=== PATIENT | female | born 1975 | race Caucasian/White ===

== ENCOUNTER 2018-04-08 07:50 | Day surgery (SDC) | payer BC, SELFPAY ==
[2018-04-08] VITALS (7 sets, daily range): BP systolic 96–115; BP diastolic 61–75; PULSE 57–82; RESP 14–16; TEMP 36.2–36.4; O2SAT 99–100; BMI 19.6
--- NOTE | 2018-04-08 | FALS_PTH ---
PATIENT: CHAS CARVER LOC: [facility] [place] U#:[id number] AGE/SX: 42/F ROOM: RE04/08/[address]: Dr. Edilma Calvo, MDDOB: 1975 BED: DIS: 04/08/2018 SPEC #: [id number] RECD: 04/08/18 12:25 STATUS: BELKISOleg ONTIVEROS #: [id number] ANNMARIE: 04/08/18 00:[address]: Edilma Calvo DEPT: SURGICAL PATHOLOGY RECD BY: Jose Abreu ENTERED: 04/08/18 12:25 SP TYPE: FALL TUBES OTHR DR: Dr. Rusty Rios DO Tissues: Fallopian tube Procedures: Surgery Specimen Level II HEADER OPERATION: Laparoscopic salpingectomy, Mirena removal PRE-OP DIAGNOSIS: Permanent sterilization and Mirena removal due to expiration TISSUE SUBMITTED: Bilateral fallopian tubes MICROSCOPIC DIAGNOSIS Bilateral fallopian tubes, salpingectomy: Bilateral fallopian tubes including fimbrial ends, no pathologic diagnosis. EVA:jaylene 04/09/18 MICROSCOPIC DESCRIPTION Slides are reviewed. GROSS DESCRIPTION Received is one container labeled with the patient's name and designated bilateral fallopian tubes. The specimen consists of bilateral fallopian tubes including fimbrial ends measuring 4.5 cm in length and 0.5 cm in diameter and 5 cm in length and up to 0.6 cm in diameter. The fallopian tubes are not identified as right or left. Sections reveal unremarkable cut surfaces. Also present in the container are detached tubular pieces of soft tissue measuring 0.6 to 1.5 cm in length and 0.2 to 0.3 cm in diameter. [employer] sections are submitted in two cassettes with each cassette containing one fallopian tube. Cassette 2 contains the detached pieces of tissue, inked black. / EVA:jaylene 04/08/18 TC:4 CPT: 67818 x2
[2018-04-08 08:26] LABS: Internal QC Validated? YES +Cl - CLEAR BKGD; Pregnancy, Urine Negative Negative
[2018-04-08 08:33] LABS: Hematocrit 37.4 % (37-47); Hemoglobin 12.3 g/dl (12.0-15.0); Mean Corp Hgb Conc 32.9 g/gl (32-36); Mean Corpuscular Hgb 31.2 pg (27.0-32.0); Mean Corpuscular Volume 94.9 fL (81-99); Mean Platelet Vol. 9.7 fl (6.2-12.0); Platelet Count 185 K/mm3 (150-450); RBC Distribution Width CV 12.5 % (11.6-14.6); RBC Distribution Width SD 43.3 fl (35.1-43.9); Red Blood Count 3.94 M/mm3 (4.2-5.4); White Blood Count 3.9 K/mm3 (4.4-11.0)
[2018-04-08 08:35] LABS: Scan Indicated on CBC? Y/N NO
--- NOTE | 2018-04-08 09:38 | DCINST_ITS ---
Discharge Diet: No Restrictions, - - Increase fluid intake for 48 hours. Discharge Activity: Return to Normal Activity, May Drive - when you are no longer taking narcotic pain medications., May Shower, May Take a Tub Bath - in 7 days., - - Ambulate often the next week after surgery. May resume sexual activity in: 2 weeks Lifting Restrictions: 20 Additional Activity Instructions:: Nothing in the vagina for the next 5 days. Call your doctor if your incision/area has: Continuous Slow Oozing, Sudden Increased Bleeding, Increased Pain/ Swelling, Increased Redness, Foul Smelling Discharge, Swelling at the incision site Call your doctor if you observe: Fever of 101 or Higher Allergies/Adverse Reactions: Allergies hydrocodone [From Vicodin] Allergy (Verified 04/01/18 09:02) Itching Medications to take at Discharge Levonorgestrel [Mirena] 1 each IY X1 04/01/18 Primary Care Physician: Rusty Rios DO [Primary Care Provider] - Test Results: Test results from this visit will be discussed in further detail at your follow- up appointment, if applicable. Please Follow Up With: Edilma Calvo MD When: as scheduled in 2 weeks
[2018-04-08] MEDS: Bupivacaine Mpf 0.5% 30 ML VIAL (10:20)
--- NOTE | 2018-04-08 10:21 | PCM.OP.BLANK ---
Operative Report Date of Procedure: 04/08/18 Surgeon: Dr. Edilma Calvo Finance Attorney: Meño Beatty MS3 Preoperative diagnosis: Sterilization request, IUD removal Postoperative diagnosis: Sterilization request, IUD removal Procedure performed: Laparoscopic bilateral salpingectomy, Mirena IUD removal complications: None Estimated blood loss: 5 cc Drains: none Specimens collected: Bilateral tubes Findings: Normal tubes and ovaries bilaterally uterus sounded to approximately 8 cm. Anesthesia: General Implantable devices: none Operative note: After informed consent was obtained patient was taken to the operating room she was placed in supine position she was given anesthesia. She was then placed in the yellow [facility] stirrups and she was prepped and draped in normal sterile fashion. Bladder was drained prior to the start of procedure approximately 100 cc of clear yellow urine was expelled. At this time attention was turned to the vaginal portion where weighted speculum placed at posterior fornix vagina single-tooth tenaculum was used to gently grasp the internal the cervix. IUD strings seen at cervical os- grasped with donaldo and iud removed without difficulty. uterus was gently sounded to approximately 8cm. Uterine manipulator was placed without difficulty. Legs then placed in parallel with the abdomen the tenaculum and the weighted speculum were removed. 2 towel clamps were placed superior to umbilicus. After Marcaine was injected superior to umbilicus a small incision was made and a 5 mm trocar was placed under direct visualization. CO2 gas was used to insufflate the intra-abdominal cavity. Upon inspection no gross abnormalities uterus tubes and ovaries appeared to be normal. At this time then the LLQ port and RLQ was placed again Marcaine was injected small incision was made a knife and the 5 mm trocar was placed. At this time then tubes were traced back to the fimbriated ends. Ligasure was used to coagulate and ligate along mesosalpinx bilaterally until tubes removed completely. Good hemostasis was appreciated. At this time procedure was deemed complete successful. The gas was desufflated on from the intra-abdominal cavity. The trochars were removed. Skin was closed using 4-0 Monocryl in a subcutaneous fashion. Dermabond glue was placed. Instrument lap and needle counts were correct ?2. The uterine manipulator was removed. Vaginal sweep was performed it was negative. There were no complications anticipated normal postoperative course for this patient.
== END 2018-04-08 12:10 | disposition home or self-care (01) ==
LOC: SDC 07:54 → AC 07:54
PROVIDERS: Family Provider Student in an Organized Health Care Education/Training Program; PCP Student in an Organized Health Care Education/Training Program; Visit Provider Obstetrics & Gynecology
PROC: (CPT 58661; principal; 2018-04-08 09:10)
DX: Z30.2 Encounter for sterilization (principal); Z30.432 Encounter for removal of intrauterine contraceptive device
CPT/HCPCS: 58301; 58661; 36415; 81025; 85027; 88302; J7120; J2405

== ENCOUNTER 2024-07-04 09:15 | Emergency (ER) | payer OTHER, SELFPAY ==
[2024-07-04 09:16] VITALS: BP 117/76; PULSE 89; RESP 16; TEMP 36.4; O2SAT 100; BMI 20.1
[2024-07-04 09:18] VITALS: BP 117/76; PULSE 89; RESP 16; TEMP 36.4; O2SAT 99
--- NOTE | 2024-07-04 09:27 | ED.VIS.FEGU ---
HPI HPI - Female History of Present Illness Chief Complaint: Complaint PFSH PFSH Home Medications ?Medication ?Instructions ?Recorded ?Last Taken ?Type levonorgestrel (Mirena) 1 ea IY X1 04/01/18 Unknown History Allergy/AdvReac Type Severity Reaction Status Date / Time hydrocodone (From Vicodin) Allergy Itching Verified 07/04/24 09:18 Social History Smoking Status: Never smoker EXAM Physical Exam Const Vital Signs: 07/04/24 09:16 07/04/24 09:18 Temperature 97.5 F L 97.5 F L Temperature Source Temporal Temporal Pulse Rate 89 89 Respiratory Rate 16 16 Blood Pressure 117/76 117/76 Blood Pressure Mean 89 89 Pulse Ox 100 99 Oxygen Delivery Method Room Air Room Air MDM MDM MDM Narrative Medical decision making narrative: HISTORY OF PRESENT ILLNESS: 48-year-old female presents with concern for ongoing UTI symptoms. States is on her second antibiotic for UTI with symptoms not improved. She further states she has had 1 month of burning with urination, frequency. She is sexually active but is active and STDs. Denies vaginal discharge or bleeding. Denies constipation or diarrhea. Notes 1 month ago started Macrobid improved initially. Notes after therapy she was symptom-free for 5 days and then became symptoms again. She notes she is on day 11 of 14 of ciprofloxacin with no relief. She notes some lower abdominal pain. Notes history of fallopian tube removal however she states she does her uterus and ovaries. REVIEW OF SYSTEMS: Pertinent positives: Frequency, dysuria, nausea, abdominal pain Pertinent negatives: Fever, vaginal bleeding, discharge, diarrhea, constipation PHYSICAL EXAM: Nursing triage notes reviewed, Vital signs reviewed Constitutional: please see mdm HENT: MMM Eyes: Pupils equal round and reactive to light, Extraocular muscles intact Neck: No stridor, no JVD, full neck ROM Lungs: Clear to auscultation, No wheezing or rales. No increased work of breathing, no conversational dyspnea, no accessory muscle use, no nasal flaring. No respiratory distress noted Heart: Regular rate and rhythm, No murmurs, No rubs and No gallops, 2+ distal pulses (radial, femoral, posterior tibial) in all extremities Abdomen: Soft, there is no tenderness, rigidity, rebound or guarding, no obvious peritoneal signs, no palpable pulsatile abdominal masses, no auscultated abdominal bruit : No CVAT Extremities: No edema Neuro: No new focal neurological deficits, cranial nerves II through XII intact, 5/5 strength in all present extremities. Intact sensation to light touch in all present extremities, 2+ reflexes bilateral patella tendons. Skin: No rash or lesions noted MEDICAL DECISION MAKING: Chief Complaint: External records reviewed: Reviewed prior allergies, problem list, vital signs and current medications. Reviewed prior labs, images. Also reviewed prior microbiology results. Prior microbiology results showed no recent urine cultures. Factors affecting care: none Social determinants of health: none History obtained from others: none Consults: none [facility] Narrative: The patient was initially hemodynamically stable, afebrile and nontoxic-appearing. Exam with left lower quadrant and suprapubic TTP. No peritoneal signs. I considered the following differential diagnosis: Cystitis, mass, obstruction, perforation, ovarian cyst, UTI, pyelonephritis I obtained a broad lab and imaging workup to further elucidate etiology of the patient's complaints. ALL IMAGES (IF OBTAINED) HAVE BEEN PERSONALLY REVIEWED AND INTERPRETED BY MYSELF. CBC without leukocytosis, severe anemia, no thrombocytopenia. BMP without evidence of significant electrolyte abnormalities, no anion gap, no acute kidney injury. LFTs show no evidence of hepatobiliary pathology. Urinalysis shows no evidence of urinary inflammation suggestive of UTI Urine test is negative CT scan abdomen pelvis showed no evidence of obvious intra-abdominal pathology. Repeat abdominal exam remained benign. The synthesis of the patient's history, physical exam, labs and images suggest no acute life or limb threatening etiology. Specifically no signs of UTI, urosepsis, significant intra-abdominal surgical pathology such as obstruction, perforation. There was an ovarian cyst noted over the patient no longer has fallopian tubes, is not of childbearing age I do not suspect she is suffering from a chronic ovarian torsion given symptoms have been ongoing for 1 month. I do not send urine for culture because it was completely normal. The patient may be suffering from some other chronic inflammatory etiology such as chronic cystitis. Will give [employer] follow-up. The patient and/or family, caregivers express understanding. The patient and/or family, caregivers agrees with the plan. Shared decision making: I will have a discussion with the patient and or visitors regarding risk/benefits of further testing or admission. They will be made aware of of the risk/benefits inherent in this decision they will be given the opportunity to voice understanding. Total critical care time today provided was at least 0 minutes. This excludes separately billable procedures. Critical care time (if documented) is secondary to the patient having high probability of clinically significant/life threatening deterioration in the patient's condition which required my urgent intervention. Impression: 1. Chronic dysuria 2. Pelvic pain Dispo: Discharge home This note was generated with View[employer] dictation software. It may contain incorrect words, spelling, and punctuation that were not noted in review of the chart prior to signing. Lab Data Labs: Laboratory Results - last 24 hr 07/04/24 10:00 WBC 5.8 RBC 3.93 L Hgb 12.5 Hct 38.0 MCV 96.7 MCH 31.8 MCHC 32.9 RDW Std Deviation 43.4 RDW Coeff of Dung 12.1 Plt Count 205 MPV 10.1 Immature Gran % (Auto) 0.300 Neut % (Auto) 60.2 Lymph % (Auto) 29.5 [place] % (Auto) 6.0 Eos % (Auto) 3.1 Baso % (Auto) 0.9 Absolute Neuts (auto) 3.5 Absolute Lymphs (auto) 1.72 Nucleated RBC % 0 Sodium 136 Potassium 3.7 Chloride 110 H Carbon Dioxide 22.0 Anion Gap 5 BUN 11 Creatinine 0.81 Estim Creat Clear Calc 76.61 Est GFR (MDRD) Af Amer 97 Est GFR (MDRD) Non-Af 80 BUN/Creatinine Ratio 13.5 Glucose 70 L Calcium 8.6 Total Bilirubin 0.40 AST 15 ALT 18 Alkaline Phosphatase 40 L Total Protein 6.7 Albumin 3.5 Globulin 3.2 Albumin/Globulin Ratio 1.1 Lipase 29 Urine Color Straw Urine Clarity Clear Urine pH 6.0 Ur Specific [place] 1.010 Urine Protein Negative Urine Glucose (UA) Normal Urine Ketones Negative Urine Occult Blood Negative Urine Nitrite Negative Urine Bilirubin Negative Urine Urobilinogen Normal Ur Leukocyte Esterase Negative Urine RBC 0 SEEN Urine WBC 0 SEEN Ur Squamous Epith Cells 0-5 SEEN Urine Bacteria 0 SEEN Urine Mucus 0 SEEN Urine Test Negative Discharge Plan Triage Chief Complaint: Complaint ED Provider: Jarret Munguia Dx/Rx/DC Orders Instructions: ED Pelvic Pain, Unknown Cause Prescriptions: No Action levonorgestrel [Mirena] 1 EACH intrauterine device 1 ea IY X1 Primary Care Provider: Rusty Rios Referrals: Rusty Rios DO [Primary Care Provider] - Janis Kearney DO [Med Staff - Active Staff] - Activity Restrictions/Additional Instructions: Thank you for trusting us with your care today! Please take Tylenol (2 pills, 650 mg), ibuprofen (2 pills, 400 mg) every 6 hours as needed for pain and fever control. Please return to the emergency department if your symptoms change or worsen. Please follow with your primary care physician for further outpatient evaluation and management. Print Language: Faroese
--- NOTE | 2024-07-04 09:41 | CT_ITS ---
STUDY: CT ABDOMEN AND PELVIS WITH CONTRAST REASON FOR EXAM: Female, 48 years old. Lower abdominal pain recent treatment for urinary tract infection. RADIATION DOSAGE (If Supplied By Facility): CTDIvol = ( 7.64 ) mGy, DLP = ( 255.66 ) mGycm TECHNIQUE: Transaxial images were obtained from the dome of the diaphragm to the symphysis pubis without oral contrast. IV 100mL Isovue-370 was administered. Sagittal and coronal images were reconstructed. Individualized dose optimization techniques were used for this CT. COMPARISON: None. FINDINGS: Bilateral breast implants. Minimal linear scarring at the left lung base. The visualized portions of the heart are within normal limits. Normal liver. Normal gallbladder and extrahepatic biliary system. Normal spleen. Normal pancreas. Normal bilateral adrenal glands. Normal right kidney. Normal left kidney. Normal visualized stomach. Normal small intestine. Moderate amount of fecal material is seen in the colon. The appendix is visualized and appears normal. Normal abdominal aorta. Normal inferior vena cava. Normal retroperitoneum. Normal urinary bladder. IUD is seen within the endometrium. There is a 3.2 cm x 3.1 cm cyst in the left ovary. Small amount of free fluid in the pelvis. Normal abdominal wall. Normal osseous structures. CT/Abdomen/Pelvis W IV Cont ONLY IMPRESSION: 3.2 cm x 3.1 cm cyst in the left ovary. Small amount of free fluid is seen in the pelvis. IUD is seen within the endometrium. Electronically Signed: Hardik Chapa MD at 10:56 EST ,
[2024-07-04] MEDS: Ketorolac 15 MG/ML Vial IV (09:58)
[2024-07-04] MEDS: Ondansetron 4 MG/2 ML Vial IV (09:58)
[2024-07-04 10:05] LABS: Bacteria 0 SEEN /hpf (None Seen); Mucous, Urine 0 SEEN /hpf (<or=2+); Red Blood Cells-Urine 0 SEEN /hpf (0-5); White Blood Cells 0 SEEN /hpf (0-5)
[2024-07-04 10:07] LABS: Color, Urine Straw (Yellow); Glucose, Dipstick Normal (Normal); Ketone-Dipstick Negative (Negative); Leukocyte Esterase-Dipstick Negative /ul (Negative); Nitrite-Dipstick Negative (Negative); Occult Blood-Urine Negative /ul (Negative); Protein-Dipstick Negative (Negative); Urine Bilirubin Dipstick Negative (Negative); Urine Clarity Clear (Clear); Urine Urobilinogen Normal (Normal)
[2024-07-04 10:10] LABS: Internal QC Validated? YES +Cl - CLEAR BKGD; Pregnancy, Urine Negative Negative
[2024-07-04 10:11] LABS: Absolute Lymphocyte Count 1.72 X10^3/uL (0.83-4.51); Absolute Neutrophil Count 3.5 X10^3/uL (2.0-7.7); Basophil# 0.05 X10^3/uL; Basophil% 0.9 % (0-1); Eosinophil# 0.18 X10^3/uL; Eosinophils% 3.1 % (0-5); Hemoglobin 12.5 g/dL (12.0-15.0); Lymphocyte # 1.72 X10^3/ul (0.83-4.51); Lymphocyte % 29.5 % (19-41); Mean Corp Hgb Conc 32.9 g/dL (32-36); Mean Corpuscular Hgb 31.8 pg (27.0-32.0); Mean Corpuscular Volume 96.7 fL (81-99); Mean Platelet Vol. 10.1 fl (6.2-12.0); Monocyte# 0.35 X10^3/uL; NRBC Flagged by Analyzer 0 % (0-5); Neutrophil # 3.51 X10^3/uL (2.7-7.7); Neutrophil % 60.2 % (47-70); Platelet Count 205 K/mm3 (150-450); RBC Distribution Width CV 12.1 % (11.6-14.6); RBC Distribution Width SD 43.4 fl (35.1-43.9); Red Blood Count 3.93 M/mm3 (4.2-5.4); White Blood Count 5.8 K/mm3 (4.4-11.0)
[2024-07-04 10:22] LABS: Squamous Epithelial Cells - UA 0-5 SEEN /hpf (5-10)
[2024-07-04 10:28] LABS: ALB/GLOB Ratio 1.1 RATIO (0.9-2.4); AST(SGOT) 15 U/L (15-37); Alanine Aminotransfer ALT/SGPT 18 U/L (13-56); Albumin, Serum 3.5 g/dL (3.2-5.0); Alkaline Phosphatase 40 U/L (45-117); Anion Gap 5 (5-15); BUN 11 mg/dL (7-18); BUN/Creat Ratio 13.5 RATIO (10-20); Calcium,Total 8.6 mg/dL (8.5-10.1); Chloride 110 mmol/L (98-107); Creatinine, Serum 0.81 mg/dL (0.55-1.02); EST Glomerular Filtration Rate 80 mL/min (>60); Est Glom Filt Rate - Afr Amer 97 mL/min (>60); Estimated Creatinine Clearance 76.61 ml/min; Globulin 3.2 g/dL (2.2-4.2); Glucose 70 mg/dL (74-106); Lipase 29 U/L (13-75); Potassium 3.7 mmol/L (3.5-5.1); Protein, Total 6.7 g/dL (6.4-8.2); Sodium Level 136 mmol/L (136-145)
[2024-07-04 11:00] VITALS: BP 118/72; PULSE 71; RESP 18; TEMP 36.9; O2SAT 97
== END 2024-07-04 11:45 | disposition home or self-care (01) ==
PROVIDERS: Emergency Provider Emergency Medicine; PCP Student in an Organized Health Care Education/Training Program; Visit Provider Emergency Medicine
DX: R30.0 Dysuria (principal); R10.2 Pelvic and perineal pain; N83.202 Unspecified ovarian cyst, left side; Z87.440 Personal history of urinary (tract) infections
CPT/HCPCS: 74177; 80053; 81001; 81025; 83690; 85025; 96374; 96375; 99283; Q9967; A4216; J2405

== ENCOUNTER 2025-06-29 09:56 | Emergency (ER) | payer OTHER, SELFPAY ==
[2025-06-29 09:56] VITALS: BP 111/84; PULSE 101; RESP 16; TEMP 37.1; O2SAT 100; BMI 17.9
--- NOTE | 2025-06-29 11:13 | CT_ITS ---
PROCEDURE: ABDOMEN/PELVIS WITH CONTRAST 06/29/2025 REASON FOR EXAM: RIGHT SIDED ABD PAIN, WORSE AFTER EATING, N/V TECHNIQUE: Procedure Code: [id number] Modality: CT Procedure: ABDOMEN/PELVIS WITH CONTRAST Coronal and Sagittal reconstruction series were provided. CONTRAST: Isovue 370 VOLUME: 75 mL One or more dose reduction techniques were used (e.g., Automated exposure control, adjustment of the mA and/or kV according to patient size, use of iterative reconstruction technique. RADIATION DOSE SUMMARY: CTDlvol: 5.07 mGy DLP: 241.27 mGycm COMPARISON: CT abdomen and pelvis July 04, 2024. FINDINGS: Lung bases: Clear. Liver: Unremarkable. Gallbladder: Unremarkable. Spleen: Unremarkable. Pancreas: Unremarkable. Adrenals: Unremarkable. Kidneys: No hydronephrosis or nephrolithiasis. Bladder: Distended but unremarkable. Reproductive Organs: IUD in place. Bowel: Large amount of fecal load in the colon. No bowel obstruction. Appendix: Filled with air and unremarkable. Lymph nodes: No lymphadenopathy. Vasculature: No aneurysm. Peritoneum / Retroperitoneum: No free air or free fluid. Peritoneal fat stranding near the right colon may represent colitis. Bones: No acute bony abnormalities. CT/Abdomen/Pelvis WITH Contrast IMPRESSION: Large amount of fecal load in the colon with peritoneal fat stranding near the right colon concerning for acute infectious or inflammatory colitis versus fecal impaction. Otherwise, no acute abdominopelvic abnormalities. Reading Location: [facility]
--- NOTE | 2025-06-29 11:17 | EDS_ITS ---
HPI HPI - GI History of Present Illness Chief Complaint: Abd Pain Informant: patient and spouse/S.O. Narrative Narrative: Patient is a 49-year-old female presenting with abdominal pain, nausea, and emesis. - Abdominal pain began last Thursday night (1 week), described as persistent and worsening. - Pain initially started in the mid-abdomen and has since radiated to the right side, including the ribs. - Pain intensifies with eating and occurs quickly after meals. - Associated symptoms include nausea and emesis, particularly at the onset; denies hematemesis. - Reports mild diarrhea initially, but none recently; denies hematochezia or melena. - Denies dysuria. - Pain occasionally radiates to the back and right shoulder. - Received a pudendal nerve block 10 days ago; denies post-procedural bleeding, drainage, or swelling. - Family history of cholelithiasis. PFSH PFSH Home Medications ?Medication ?Instructions ?Recorded ?Last Taken ?Type levonorgestrel (Mirena) 1 ea IY X1 04/01/18 Unknown History Allergy/AdvReac Type Severity Reaction Status Date / Time hydrocodone (From Vicodin) Allergy Itching Verified 06/29/25 09:57 Social History Smoking Status: Never smoker ROS ROS ED Constitutional Constitutional ED: Denies chills or fever(s) Eyes Eyes: Denies change in vision or diplopia ENT ENT ED: Denies rhinorrhea or sore throat Cardiovascular Cardiovascular: Denies chest pain or palpitations Respiratory/Chest Respiratory/Chest: Denies cough or dyspnea Gastrointestinal Gastrointestinal: Reports abdominal pain, nausea and vomiting; Denies diarrhea, hematemesis, hematochezia or melena Genitourinary Genitourinary ED: Denies dysuria or hematuria Musculoskeletal Musculoskeletal: Reports back pain; Denies neck pain Integumentary Denies abscess or rash Neurologic Neurologic: Denies headache(s), paresthesias or weakness Psychiatric Psychiatric: Denies anxiety or suicidal thoughts EXAM Physical Exam Const Vital Signs: 06/29/25 09:56 06/29/25 12:04 06/29/25 13:00 Temperature 98.7 F Temperature Source Oral Pulse Rate 101 H 72 82 Respiratory Rate 16 Blood Pressure 111/84 H 133/87 H 107/67 Blood Pressure Mean 93 102 80 Pulse Ox 100 97 Oxygen Delivery Method Room Air Room Air 06/29/25 15:30 Temperature 98.4 F Temperature Source Pulse Rate 86 Respiratory Rate 12 Blood Pressure 119/80 Blood Pressure Mean 93 Pulse Ox 97 Oxygen Delivery Method Positive well nourished and well developed General Appearance ED: well developed and NAD HEENT Reports moist mucous membranes normocephalic and atraumatic Eyes PERRL and EOMs intact bilaterally Neck full ROM and supple Resp normal respiratory effort and clear to auscultation bilaterally Cardio regular rate, regular rhythm and no murmurs GI non-distended GI Narrative: Tender throughout the right side of the abdomen, mostly in the right lower quadrant at McBurney's point, tender also in the right upper quadrant but negative Luke. Positive Rovsing, psoas, obturator signs, all mildly positive. No guarding or rebound tenderness. Normal bowel sounds present no distention. Auscultation: normoactive bowel sounds Palpation: soft Back/Spine no CVA tenderness General Back: other FROM Extremity normal to inspection General Extremety ED: Negative for edema, pulses abnormal or tenderness General Extremity: Negative for edema or pulses abnormal Neuro oriented x3, CN's II-XII intact bilaterally and no sensory deficits noted Sensorium / Orientation: awake and alert Motor Exam: strength 5/5 throughout Psych mental status grossly normal and thought process normal Skin no rashes or lesions noted and no wounds MDM MDM MDM Narrative Medical decision making narrative: Assessment: The patient is a 49-year-old female presenting for one week of right-sided abdominal pain radiating to the right ribs and occasionally to the right shoulder, worsened by meals and associated with early nausea without emesis. Surgical history includes exploratory abdominal laparoscopy with cyst removal in March and a pudendal nerve block 10 days ago. Bedside ultrasound shows no gallstones but was limited by bowel gas. CT abdomen/pelvis reveals large stool burden in the right colon with mild pericolonic fat stranding and a normal air-filled appendix. CBC, CMP, and urinalysis are normal except for mildly elevated AST 35 and ALT 50. Differential discussed includes appendicitis, abscess, colitis, and constipation; given imaging and labs, colonic stool burden/colitis is most likely while gallbladder disease and appendicitis are less likely. Given lack of leukocytosis and no antibiotics indicated at this time. Plan: - Provided Miralax regimen instructions to flush colon. - Prescribed hyoscyamine for visceral spasm pain. - Discharged with instructions to follow up with PCP if pain persists or worsens. Diagnostics: - Bedside abdominal ultrasound: limited exam; no cholelithiasis visualized. - CT abdomen/pelvis: predominance of stool throughout right colon with mild pericolonic fat stranding; normal air-filled appendix; no lymphadenopathy. - Labs: CBC normal; CMP normal except AST 35, ALT 50; urinalysis normal. Portions of this note were generated using voice recognition software ([employer]). I have reviewed the contents and every effort has been made to ensure accuracy; however, inadvertent errors in grammar, spelling, punctuation, or word choice may occur, that were not noted before signing the document and should not alter the intended clinical meaning. Lab Data Attestation: I reviewed the patient's lab results. Labs: Laboratory Results - last 24 hr 06/29/25 06/29/25 11:55 11:58 WBC 4.3 L RBC 4.14 L Hgb 13.2 Hct 39.8 MCV 96.1 MCH 31.9 MCHC 33.2 RDW Std Deviation 44.3 H RDW Coeff of Dung 12.5 Plt Count 232 MPV 9.6 Immature Gran % (Auto) 0.200 Neut % (Auto) 46.9 L Lymph % (Auto) 35.0 [place] % (Auto) 9.3 Eos % (Auto) 7.2 H Baso % (Auto) 1.4 H Absolute Neuts (auto) 2.0 Absolute Lymphs (auto) 1.51 Nucleated RBC % 0 Sodium 141 Potassium 3.9 Chloride 105 Carbon Dioxide 24.3 Anion Gap 12 BUN 6 Creatinine 0.71 Estim Creat Clear Calc 77.37 Est GFR (MDRD) Non-Af 105 BUN/Creatinine Ratio 8.5 L Glucose 99 Calcium 9.3 Total Bilirubin 0.51 AST 35 H ALT 50 H Alkaline Phosphatase 46 Total Protein 6.7 Albumin 4.4 Globulin 2.2 Albumin/Globulin Ratio 2.0 Lipase 29 Urine Color Yellow Urine Clarity Clear Urine pH 7.0 Ur Specific [place] 1.010 Urine Protein 15 H Urine Glucose (UA) Normal Urine Ketones Negative Urine Occult Blood Negative Urine Nitrite Negative Urine Bilirubin Negative Urine Urobilinogen Normal Ur Leukocyte Esterase Negative Urine RBC 0 SEEN Urine WBC 0 SEEN Ur Squamous Epith Cells 0-5 SEEN Urine Bacteria 0 SEEN Urine Mucus 0 SEEN Radiography Diagnostic Testing: Clinical Impression(s) from Imaging Studies Abdomen/Pelvis CT 06/29/25 11:13 IMPRESSION: Large amount of fecal load in the colon with peritoneal fat stranding near the right colon concerning for acute infectious or inflammatory colitis versus fecal impaction. Otherwise, no acute abdominopelvic abnormalities. Reading Location: [facility] Discharge Plan Triage Chief Complaint: Abd Pain ED Provider: Tru [place] Dx/Rx/DC Orders Clinical Impression: Right-sided abdominal pain of unknown etiology Instructions: Abdominal Pain Prescriptions: No Action levonorgestrel [Mirena] 1 EACH intrauterine device 1 ea IY X1 Primary Care Provider: Rusty Rios Referrals: Rusty Rios, [Primary Care Provider, Medical] - 3-5 Days if not improving Activity Restrictions/Additional Instructions: - Start a bowel ?flush? with polyethylene glycol (Miralax) 1-2 cups in a day with plenty of fluids/water to help clear the stool burden in your right colon, and see if that resolves your pain. - Take hyoscyamine as prescribed to reduce intestinal spasms and discomfort. - Watch your symptoms over the next few days; if the abdominal pain does not improve or gets worse, call your doctor for reevaluation appt. Print Language: Albanian Disposition Disposition: Home, Self Care
[2025-06-29] MEDS: 0.9% Normal Saline (1000mL) 1,000 ML 125 ML IV (11:51)
[2025-06-29 12:04] VITALS: BP 133/87; PULSE 72; O2SAT 97
[2025-06-29 12:04] LABS: Hematocrit 39.8 % (37-47); Hemoglobin 13.2 g/dL (12.0-15.0); Immature Granulocytes Count 0.010 X10^3/uL (0.0-0.0); Mean Corp Hgb Conc 33.2 g/dL (32-36); Mean Corpuscular Volume 96.1 fL (81-99); Mean Platelet Vol. 9.6 fl (6.2-12.0); NRBC Flagged by Analyzer 0 % (0-5); Platelet Count 232 K/mm3 (150-450); RBC Distribution Width CV 12.5 % (11.6-14.6); RBC Distribution Width SD 44.3 fl (35.1-43.9); Red Blood Count 4.14 M/mm3 (4.2-5.4); White Blood Count 4.3 K/mm3 (4.4-11.0)
[2025-06-29 12:08] LABS: Mucous, Urine 0 SEEN /hpf (<or=2+); Red Blood Cells-Urine 0 SEEN /hpf (0-5)
[2025-06-29 12:10] LABS: Color, Urine Yellow (Yellow); Glucose, Dipstick Normal (Normal); Ketone-Dipstick Negative (Negative); Leukocyte Esterase-Dipstick Negative /ul (Negative); Nitrite-Dipstick Negative (Negative); Occult Blood-Urine Negative /ul (Negative); Protein-Dipstick 15 mg/dl (Negative); Specific Gravity, Urine 1.010 (1.002-1.030); Urine Bilirubin Dipstick Negative (Negative)
[2025-06-29 12:25] LABS: Squamous Epithelial Cells - UA 0-5 SEEN /hpf (5-10)
[2025-06-29 12:38] LABS: AST(SGOT) 35 U/L (<=31); Alanine Aminotransfer ALT/SGPT 50 U/L (<=34); Albumin, Serum 4.4 g/dL (3.5-5.0); Alkaline Phosphatase 46 U/L (35-104); Anion Gap 12 (5-15); BUN 6 mg/dL (4-19); BUN/Creat Ratio 8.5 RATIO (10-20); Calcium,Total 9.3 mg/dL (7.6-11.0); Carbon Dioxide 24.3 mmol/L (21.0-32.0); Chloride 105 mmol/L (98-108); Estimated Creatinine Clearance 77.37 ml/min (50-250); Globulin 2.2 g/dL (2.2-4.2); Glucose 99 mg/dL (70-99); Lipase 29 U/L (13-75); Potassium 3.9 mmol/L (3.3-5.1)
[2025-06-29 13:00] VITALS: BP 107/67; PULSE 82
[2025-06-29 15:30] VITALS: BP 119/80; PULSE 86; RESP 12; TEMP 36.9; O2SAT 97
== END 2025-06-29 15:46 | disposition home or self-care (01) ==
PROVIDERS: Emergency Provider Emergency Medicine; PCP Student in an Organized Health Care Education/Training Program; Visit Provider Emergency Medicine
DX: R10.31 Right lower quadrant pain (principal); R10.11 Right upper quadrant pain
CPT/HCPCS: 74177; 80053; 81001; 83690; 85025; 96361; 96374; 96375; 99283; A4216; J2405